=== PATIENT | male | born 1955 | race Caucasian/White ===

== ENCOUNTER 2016-12-28 03:02 | Emergency (ER) | payer OTHER ==
[~2016-12-28] VITALS: Ht 175.3 cm; Wt 112.7 kg
[~2016-12-28 03:02] MED LIST: ASPI-621 PO; ASPI-770 PO; ATOR40TA78 PO; CLOP75TA22 PO; FLUT1DIS5 IH; LISI-167 PO; LISI5TAB7 PO; MECL-85 PO; SIMV10TA PO; TIOT18CA INH
[2016-12-28 03:59] LABS: BLOOD UREA NITROGEN 13 mg/dL (7-18)
[2016-12-28 04:04] LABS: IS PT STATUS REG ER OR PRE ER? YES
[2016-12-28 05:09] VITALS: BP 149/88
== END 2016-12-28 05:11 | disposition home or self-care (01) ==
LOC: ED 03:52
DX: J44.9 Chronic obstructive pulmonary disease, unspecified (principal); R09.02 Hypoxemia; E78.5 Hyperlipidemia, unspecified; I10 Essential (primary) hypertension; Z87.891 Personal history of nicotine dependence; Z86.73 Personal history of transient ischemic attack (TIA), and cerebral infarction without residual deficits
CPT/HCPCS: 36415; 71010; 80048; 82040; 83880; 84484; 85025; 93005; 99285

== ENCOUNTER → 2017-04-21 | Outpatient (CLI) | payer MEDICAID | END | disposition home or self-care (01) | LOC: CFH 08:27 | PROVIDERS: ATTEND Nurse Practitioner | DX: R91.1 Solitary pulmonary nodule (principal); J96.11 Chronic respiratory failure with hypoxia; K74.60 Unspecified cirrhosis of liver | CPT/HCPCS: 71250 ==

== ENCOUNTER → 2017-11-29 | Outpatient (CLI) | payer MEDICARE, MEDICAID ==
[~2017-11-29] MED LIST changes: -CLOP75TA22 PO; +CLOP75TA52 PO; +OMNIPAQUE 350 MG/ML, 100ML BOTTLE ONE
== END | disposition home or self-care (01) ==
LOC: CFH 12:58
PROVIDERS: ATTEND Psychiatry & Neurology Neurology
DX: D37.6 Neoplasm of uncertain behavior of liver, gallbladder and bile ducts (principal); J34.89 Other specified disorders of nose and nasal sinuses
CPT/HCPCS: 70470; 82565; Q9967

== ENCOUNTER 2018-06-10 09:16 | Emergency (ER) | payer MEDICARE, MEDICAID ==
[~2018-06-10] VITALS: Ht 175.3 cm; Wt 115.6 kg
[~2018-06-10 09:16] MED LIST changes: -ASPI-770 PO; +ASPI81TA59 PO; -OMNIPAQUE 350 MG/ML, 100ML BOTTLE ONE
[2018-06-10 09:21] VITALS: BP 141/79
[2018-06-10] MEDS ORDERED: MECLIZINE CHEWABLE 25 MG TAB ONE (10:54)
[2018-06-10] MEDS ORDERED: MECLIZINE CHEWABLE 25 MG TAB PO ONE (11:00)
== END 2018-06-10 11:07 | disposition home or self-care (01) ==
LOC: ED 10:48
DX: H81.399 Other peripheral vertigo, unspecified ear (principal); H81.10 Benign paroxysmal vertigo, unspecified ear; I10 Essential (primary) hypertension; J44.9 Chronic obstructive pulmonary disease, unspecified; E78.5 Hyperlipidemia, unspecified; Z87.891 Personal history of nicotine dependence
CPT/HCPCS: 70551; 93005; 99284

== ENCOUNTER 2018-07-26 14:47 | Emergency (ER) | payer MEDICARE, MEDICAID ==
[~2018-07-26] VITALS: Ht 177.8 cm; Wt 117.7 kg
[~2018-07-26 14:47] MED LIST changes: -ASPI-621 PO; +ASPI81TA45 PO
[2018-07-26 16:19] LABS: BASOPHILS # (AUTO) 0.02 x10^3/uL (0-0.1); BASOPHILS % (AUTO) 1 % (0-1); EOSINOPHILS # (AUTO) 0.09 x10^3/uL (0-0.4); EOSINOPHILS % (AUTO) 2 % (1-7); LYMPHOCYTES # (AUTO) 0.83 x10^3/uL (1-3.4); LYMPHOCYTES % (AUTO) 17 % (22-44); MD NO; MEAN CORPUSCULAR HEMOGLOBIN 31.3 pg (27.5-34.5); MEAN CORPUSCULAR HGB CONC 33.8 g/dL (33.2-36.2); MEAN CORPUSCULAR VOLUME 92.6 fL (81-97); MEAN PLATELET VOLUME 9.4 fL (7.4-10.4); MONOCYTES # (AUTO) 0.44 x10^3/uL (0.2-0.8); MONOCYTES % (AUTO) 9 % (2-9); NEUTROPHILS # (AUTO) 3.55 x10^3/uL (1.8-6.8); NEUTROPHILS % (AUTO) 72 % (42-75); PLATELET COUNT 104 x10^3/uL (130-400); RED BLOOD COUNT 5.01 x10^6/uL (4.38-5.82); RED CELL DISTRIBUTION WIDTH 14.1 % (9.4-14.8)
[2018-07-26 16:25] LABS: ALANINE AMINOTRANSFERASE 28 U/L (12-78); ALBUMIN 3.5 g/dL (3.4-5.0); ANION GAP 8 mmol/L (5-15); CALCIUM 9.3 mg/dL (8.5-10.1); CHLORIDE 104 mmol/L (98-107); CREATININE 0.84 mg/dL (0.7-1.3)
[2018-07-26 16:27] LABS: ALKALINE PHOSPHATASE 77 U/L (45-117); BILIRUBIN,TOTAL 0.7 mg/dL (0.2-1.0); TOTAL PROTEIN 7.9 g/dL (6.4-8.2)
[2018-07-26 18:25] LABS: MICROSCOPIC NOT IND
[2018-07-26 18:43] LABS: CULTURE INDICATED? NO
[2018-07-26] MEDS ORDERED: KETOROLAC 30 MG/1 ML ONE (18:49)
[2018-07-26] MEDS ORDERED: MORPHINE SULFATE 4 MG/ML, 1ML ONE (18:49)
[2018-07-26] MEDS ORDERED: DIAZEPAM 5 MG TABLET ONE (18:50)
[2018-07-26] MEDS ORDERED: DIAZEPAM 5 MG TABLET PO ONE (19:00)
[2018-07-26] MEDS ORDERED: MORPHINE SULFATE 4 MG/ML, 1ML IVPush PRN (19:00)
[2018-07-26] MEDS ORDERED: KETOROLAC 30 MG/1 ML IVPush ONE (19:00)
[2018-07-26] MEDS ORDERED: HYDR12.53 PO (19:16)
[2018-07-26] MEDS ORDERED: UMEC1DIS INH (19:17)
[2018-07-26] MEDS ORDERED: OMNIPAQUE 350 MG/ML, 100ML BOTTLE ONE (19:23)
[2018-07-26 19:55] VITALS: BP 141/81
== END 2018-07-26 21:39 | disposition home or self-care (01) ==
LOC: ED 21:33
DX: S39.012A Strain of muscle, fascia and tendon of lower back, initial encounter (principal); J44.9 Chronic obstructive pulmonary disease, unspecified; R10.32 Left lower quadrant pain; R19.7 Diarrhea, unspecified; I10 Essential (primary) hypertension; E78.5 Hyperlipidemia, unspecified; Z86.19 Personal history of other infectious and parasitic diseases; Z90.89 Acquired absence of other organs; Z86.73 Personal history of transient ischemic attack (TIA), and cerebral infarction without residual deficits; X50.1XXA Overexertion from prolonged static or awkward postures, initial encounter; Y93.89 Activity, other specified; Y92.89 Other specified places as the place of occurrence of the external cause; Y99.8 Other external cause status
CPT/HCPCS: 36415; 74022; 74177; 80053; 81003; 85025; 96374; 96375; 99284; J1885; Q9967

== ENCOUNTER 2018-08-11 09:57 | Day surgery (SDC) | payer MEDICARE, MEDICAID ==
[~2018-08-11] VITALS: Ht 176.5 cm; Wt 117.3 kg
[~2018-08-11 09:57] MED LIST changes: +ASPI-496 PO; +HYDR12.517 PO; +LISI1TAB5 PO; +UMEC1DIS INH
[2018-08-11] MEDS ORDERED: LACTATED RINGERS 1,000 ML IV SCH (10:23)
[2018-08-11 11:04] VITALS: BP 131/89
[2018-08-11] MEDS ORDERED: FENTANYL PF 250 MCG/5ML ONE (11:54)
[2018-08-11] MEDS ORDERED: MIDAZOLAM 1 MG/ML, 2ML ONE (11:54)
[2018-08-11] MEDS ORDERED: PROPOFOL 10 MG/ML, 20ML ONE (12:05)
[2018-08-11] MEDS ORDERED: CEFTRIAXONE 1,000 MG ONE (12:20)
[2018-08-11] MEDS ORDERED: ONDANSETRON 2MG/ML, 2ML ONE ×3 (12:23→12:27)
[2018-08-11] MEDS ORDERED: DEXAMETHASONE 4 MG/ML, 1ML ONE ×3 (12:23→12:27)
[2018-08-11] MEDS ORDERED: SUCCINYLCHOLINE 20 MG/ML, 10ML ONE (12:27)
[2018-08-11] MEDS ORDERED: ROCURONIUM 10MG/ML,5ML ONE (12:27)
[2018-08-11] MEDS ORDERED: PHENYLEPHRINE 10 MG/ML ONE (12:27)
[2018-08-11] MEDS ORDERED: OXYcodone 5 MG/5 ML ORAL.SOL UDC PO PRN (13:00)
[2018-08-11] MEDS ORDERED: LORazepam 2 MG/ML, 1ML IVPush PRN (13:00)
[2018-08-11] MEDS ORDERED: LABETALOL 5MG/ML, 20ML IV PRN (13:00)
[2018-08-11] MEDS ORDERED: FENTANYL PF 100 MCG/2ML IV PRN (13:00)
[2018-08-11] MEDS ORDERED: MEPERIDINE/PF 25MG/0.5ML IVPush PRN (13:00)
[2018-08-11] MEDS ORDERED: hydrALAzine 20 MG/ML, 1ML IV PRN (13:00)
[2018-08-11] MEDS ORDERED: ALBUTEROL/IPRATROPIUM 2.5MG/0.5MG, 3 ML NPPB PRN (13:00)
[2018-08-11] MEDS ORDERED: HALOPERIDOL 5 MG/ML IV PRN (13:00)
[2018-08-11] MEDS ORDERED: HYDROmorphone 2 MG/ML, 1ML IVPush PRN (13:00)
[2018-08-11] MEDS ORDERED: ONDANSETRON 2MG/ML, 2ML IV PRN (13:00)
== END 2018-08-11 14:20 | disposition home or self-care (01) ==
LOC: OUT 09:57
PROVIDERS: ATTEND Internal Medicine
DX: Z12.11 Encounter for screening for malignant neoplasm of colon (principal); D12.4 Benign neoplasm of descending colon; K57.30 Diverticulosis of large intestine without perforation or abscess without bleeding; I85.00 Esophageal varices without bleeding; K29.70 Gastritis, unspecified, without bleeding; J44.9 Chronic obstructive pulmonary disease, unspecified; E66.9 Obesity, unspecified; G47.33 Obstructive sleep apnea (adult) (pediatric); I10 Essential (primary) hypertension; Z86.73 Personal history of transient ischemic attack (TIA), and cerebral infarction without residual deficits; Z86.19 Personal history of other infectious and parasitic diseases; Z98.890 Other specified postprocedural states; Z87.891 Personal history of nicotine dependence
CPT/HCPCS: 43239; 43244; 45385; 88305; 93005; J0330; J0696; J1100; J2250; J2370; J2405; J2704; J3010; J7120

== ENCOUNTER → 2018-10-18 | Outpatient (CLI) | payer MEDICARE, MEDICAID | END | disposition home or self-care (01) | LOC: CFH 13:57 | PROVIDERS: ATTEND Nurse Practitioner Family | DX: R91.1 Solitary pulmonary nodule (principal) | CPT/HCPCS: 71250 ==

== ENCOUNTER → 2018-11-10 | Outpatient (CLI) | payer MEDICARE, MEDICAID ==
[~2018-11-10] MED LIST changes: +ATOR20TA37 PO
== END | disposition home or self-care (01) ==
LOC: STAR 10:49
PROVIDERS: ATTEND Internal Medicine
DX: Z01.818 Encounter for other preprocedural examination (principal); K74.60 Unspecified cirrhosis of liver
CPT/HCPCS: 93005

== ENCOUNTER 2018-11-17 09:57 | Day surgery (SDC) | payer MEDICARE, MEDICAID ==
[~2018-11-17] VITALS: Ht 177.8 cm; Wt 117.2 kg
[2018-11-17 10:14] VITALS: BP 145/83
[2018-11-17] MEDS ORDERED: LACTATED RINGERS 1,000 ML IV SCH (10:45)
[2018-11-17] MEDS ORDERED: PROPOFOL 10 MG/ML, 20ML ONE (12:07)
== END 2018-11-17 13:45 | disposition home or self-care (01) ==
LOC: OUT 09:57
PROVIDERS: ATTEND Internal Medicine
DX: I85.00 Esophageal varices without bleeding (principal); K74.60 Unspecified cirrhosis of liver; G47.33 Obstructive sleep apnea (adult) (pediatric); J44.9 Chronic obstructive pulmonary disease, unspecified; Z87.891 Personal history of nicotine dependence; Z79.82 Long term (current) use of aspirin
CPT/HCPCS: 43244; J2704; J7120

== ENCOUNTER → 2019-03-13 | Outpatient (CLI) | payer MEDICARE, MEDICAID | END | disposition home or self-care (01) | LOC: CFH 09:26 | PROVIDERS: ATTEND Nurse Practitioner Family | DX: M47.817 Spondylosis without myelopathy or radiculopathy, lumbosacral region (principal); M41.86 Other forms of scoliosis, lumbar region | CPT/HCPCS: 72114 ==

== ENCOUNTER → 2019-10-03 | Outpatient (CLI) | payer MEDICARE, MEDICAID ==
[~2019-10-03] MED LIST changes: +LISI1TAB19 PO; -LISI1TAB5 PO
== END | disposition home or self-care (01) ==
LOC: CFH 16:26
PROVIDERS: ATTEND Nurse Practitioner Family
DX: M19.012 Primary osteoarthritis, left shoulder (principal); M75.32 Calcific tendinitis of left shoulder; M25.712 Osteophyte, left shoulder

== ENCOUNTER → 2020-04-09 | Outpatient (CLI) | payer MEDICARE, MEDICAID ==
[~2020-04-09] MED LIST changes: +FURO20TA3 PO; +GABA600T7 PO; +LORazepam 2 MG/ML, 1ML ONE; +ROSU5TAB PO
[2020-04-09 10:59] LABS: ALANINE AMINOTRANSFERASE 32 U/L (12-78); ALBUMIN 4.1 g/dL (3.4-5.0); ANION GAP 4 mmol/L (5-15); CHLORIDE 107 mmol/L (98-107); CREATININE 0.93 mg/dL (0.7-1.3)
[2020-04-09 11:01] LABS: ALKALINE PHOSPHATASE 77 U/L (45-117); BILIRUBIN,TOTAL 0.7 mg/dL (0.2-1.0); TOTAL PROTEIN 8.2 g/dL (6.4-8.2)
== END | disposition home or self-care (01) ==
LOC: STAR 09:48
DX: Z01.818 Encounter for other preprocedural examination (principal); K74.60 Unspecified cirrhosis of liver; I85.00 Esophageal varices without bleeding
CPT/HCPCS: 36415; 80053; 93005

== ENCOUNTER 2020-04-12 13:13 | Outpatient (CLI) | payer MEDICARE, MEDICAID ==
[~2020-04-12 13:13] MED LIST changes: -LORazepam 2 MG/ML, 1ML ONE
== END 2020-04-12 23:59 | disposition home or self-care (01) ==
LOC: STAR 13:13
PROVIDERS: ATTEND Anesthesiology
DX: Z01.818 Encounter for other preprocedural examination (principal); Z11.59 Encounter for screening for other viral diseases
CPT/HCPCS: 36415; 87635

== ENCOUNTER 2020-04-16 07:59 | Day surgery (SDC) | payer MEDICARE, MEDICAID ==
[~2020-04-16] VITALS: Ht 176.5 cm; Wt 120.0 kg
[2020-04-16] MEDS ORDERED: CHLORHEXIDINE 15 ML UDC MM STA (08:41)
[2020-04-16 08:46] VITALS: BP 112/73
[2020-04-16] MEDS ORDERED: PROPOFOL 10 MG/ML, 20ML ONE (09:40)
[2020-04-16] MEDS ORDERED: LACTATED RINGERS 1,000 ML IV SCH (10:00)
== END 2020-04-16 11:15 | disposition home or self-care (01) ==
LOC: OUT 07:59
PROVIDERS: ATTEND Internal Medicine Geriatric Medicine
DX: I85.00 Esophageal varices without bleeding (principal); K70.30 Alcoholic cirrhosis of liver without ascites; B19.20 Unspecified viral hepatitis C without hepatic coma; I10 Essential (primary) hypertension; E78.5 Hyperlipidemia, unspecified; J44.9 Chronic obstructive pulmonary disease, unspecified; G47.33 Obstructive sleep apnea (adult) (pediatric); Z79.899 Other long term (current) drug therapy; Z72.89 Other problems related to lifestyle; Z87.891 Personal history of nicotine dependence; Z85.05 Personal history of malignant neoplasm of liver; Z98.890 Other specified postprocedural states
CPT/HCPCS: 43239; 88305; J2704

== ENCOUNTER 2021-03-10 15:09 | Emergency (ER) | payer MEDICARE, MEDICAID ==
[~2021-03-10] VITALS: Ht 175.3 cm; Wt 123.2 kg
[~2021-03-10 15:09] MED LIST changes: -LISI1TAB19 PO; +LISI1TAB39 PO
[2021-03-10 15:49] LABS: BASOPHILS % (AUTO) 0 % (0-1); EOSINOPHILS % (AUTO) 1 % (1-7); LYMPHOCYTES % (AUTO) 6 % (22-44); MEAN CORPUSCULAR HEMOGLOBIN 31.8 pg (27.5-34.5); MEAN CORPUSCULAR HGB CONC 34.1 g/dL (33.2-36.2); MEAN PLATELET VOLUME 9.2 fL (7.4-10.4); MONOCYTES % (AUTO) 12 % (2-9); NEUTROPHILS % (AUTO) 81 % (42-75); PLATELET COUNT 62 x10^3/uL (130-400); RED BLOOD COUNT 4.99 x10^6/uL (4.38-5.82); RED CELL DISTRIBUTION WIDTH 14.4 % (9.4-14.8)
[2021-03-10 15:56] LABS: ALBUMIN 3.3 g/dL (3.4-5.0); ANION GAP 3 mmol/L (5-15); CHLORIDE 107 mmol/L (98-107)
--- NOTE | 2021-03-10 17:54 | NUR ---
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
--- NOTE | 2021-03-10 17:57 | NUR ---
PT BROUGHT BACK FROM TRIAGE WITH CHIEF COMPLAINT OF N/V, LEFT ARM PAIN AND MILLIGAN STARTING LAST NIGHT.
--- NOTE | 2021-03-10 18:01 | NUR ---
PT DENIES CP, SOB, OR RECENT TRAUMA.
--- NOTE | 2021-03-10 19:08 | NUR ---
ASSUMING CARE OF PT AFTER REPORT FROM VIKAS CAAL. PT SITTING UP IN BED. VSS. FRIAS.
[2021-03-10 19:29] LABS: ALANINE AMINOTRANSFERASE 43 U/L (12-78); ALBUMIN 3.2 g/dL (3.4-5.0); ANION GAP 5 mmol/L (5-15); CALCIUM 8.7 mg/dL (8.5-10.1); CHLORIDE 105 mmol/L (98-107); CREATININE 0.81 mg/dL (0.7-1.3)
[2021-03-10 19:32] LABS: BASOPHILS % (AUTO) 1 % (0-1); EOSINOPHILS % (AUTO) 2 % (1-7); LYMPHOCYTES % (AUTO) 8 % (22-44); MEAN CORPUSCULAR HEMOGLOBIN 31.6 pg (27.5-34.5); MEAN CORPUSCULAR HGB CONC 34.2 g/dL (33.2-36.2); MONOCYTES % (AUTO) 13 % (2-9); NEUTROPHILS % (AUTO) 78 % (42-75); PLATELET COUNT 56 x10^3/uL (130-400); RED BLOOD COUNT 4.98 x10^6/uL (4.38-5.82); RED CELL DISTRIBUTION WIDTH 14.4 % (9.4-14.8)
[2021-03-10 19:34] LABS: ALKALINE PHOSPHATASE 71 U/L (45-117); BILIRUBIN,TOTAL 1.4 mg/dL (0.2-1.0); TOTAL PROTEIN 7.1 g/dL (6.4-8.2); TROPONIN I < 0.015 ng/mL (0.000-0.045)
--- NOTE | 2021-03-10 20:07 | NUR ---
UA SENT TO LAB. PATIENT TOLERATING INTERVENTIONS WELL. UPDATED ON PLAN OF CARE. NO NOTED ADDITIONAL NEEDS AT THIS TIME. CALL LIGHT WITHIN REACH, BED IN LOWEST LOCKED POSITION, SIDE RAILS X 2 UP. VSS. WILL CONTINUE TO MONITOR.
[2021-03-10 20:29] LABS: MICROSCOPIC INDICATED
[2021-03-10] MEDS ORDERED: ONDANSETRON ODT 4 MG ONE (20:40)
[2021-03-10] MEDS ORDERED: ONDANSETRON ODT 4 MG PO ONE (21:00)
[2021-03-10] MEDS ORDERED: ONDANSETRON 2MG/ML, 2ML IVPush ONE (21:00)
--- NOTE | 2021-03-10 21:10 | NUR ---
UPDATED ON PLAN OF CARE. NO NOTED ADDITIONAL NEEDS AT THIS TIME. CALL LIGHT WITHIN REACH, BED IN LOWEST LOCKED POSITION, SIDE RAILS X 2 UP. VSS. WILL CONTINUE TO MONITOR.
[2021-03-10 21:35] VITALS: BP 138/74
--- NOTE | 2021-03-10 21:39 | NUR ---
PT CLEARED FOR DISCHARGE. VERBALIZED UNDERSTANDING OF SELF CARE AND FOLLOW UP CARE AT HOME. AMBULATORY WITH TO DISCHARGE WITH BELONGINGS WITHOUT COMPLICATIONS. NO NOTED ACUTE DISTRESS. VSS.
== END 2021-03-10 21:42 | disposition home or self-care (01) ==
LOC: ED 15:39
DX: M79.622 Pain in left upper arm (principal); B34.9 Viral infection, unspecified; Z20.822 Contact with and (suspected) exposure to COVID-19; R00.0 Tachycardia, unspecified; I10 Essential (primary) hypertension; J44.9 Chronic obstructive pulmonary disease, unspecified; E78.5 Hyperlipidemia, unspecified; Z86.73 Personal history of transient ischemic attack (TIA), and cerebral infarction without residual deficits; Z87.891 Personal history of nicotine dependence; Z86.19 Personal history of other infectious and parasitic diseases
CPT/HCPCS: 36415; 71045; 80048; 80053; 81001; 82040; 84145; 84484; 85025; 87086; 93005; 99285; Q0162; U0003; U0005

== ENCOUNTER 2021-03-11 13:40 | Observation (INO) | payer MEDICARE, MEDICAID ==
[~2021-03-11] VITALS: Ht 175.3 cm; Wt 123.6 kg
--- NOTE | 2021-03-11 13:40 | NUR ---
JOYA FROM HOME C/O SUDDEN CP RAD TO BACK WHILE AT HOME DEPOT EARLIER, PT ALSO STATES "I WASN'T WEARING MY OXYGEN AT THE TIME", PT SEEN LAST NIGHT FOR SAME & DC'D TO F/U WITH CARDS, PT DENIES PAIN ON ARRIVAL; ASA 324MG & PIV GLASS SCULLION PER EMS; PT CHANGED INTO GOWN, RESPONDS APPROP TO STAFF, NAD/RESP DISTRESS, MONITORS IN PLACE, COMFORT MEASURES PROVIDED, CALL LIGHT WITHIN REACH.
[2021-03-11] MEDS ORDERED: SODIUM CHLORIDE FLUSH 10ML SYR IVF ONE (15:00)
[2021-03-11] MEDS ORDERED: ASPIRIN 81 MG TABLET CHEW PO ONE (15:00)
[2021-03-11] MEDS ORDERED: NITROGLYCERIN SINGLE TAB 0.4 MG SL PRN (15:00)
--- NOTE | 2021-03-11 15:00 | NUR ---
PT UPRIGHT ON GURNEY AWAKE & COMFORTABLE, NAD- DENIES CHEST PAIN & SOB, NTG HELD AT THIS TIME PER ERP REQUEST, RESPONDS APPROP TO STAFF, NO NEEDS AT THIS TIME, CALL LIGHT WITHIN REACH.
[2021-03-11 15:28] LABS: CALCIUM 8.4 mg/dL (8.5-10.1); CREATININE 0.76 mg/dL (0.7-1.3)
[2021-03-11 15:30] LABS: BASOPHILS % (AUTO) 1 % (0-1); EOSINOPHILS % (AUTO) 3 % (1-7); LYMPHOCYTES % (AUTO) 9 % (22-44); MEAN CORPUSCULAR HEMOGLOBIN 31.6 pg (27.5-34.5); MEAN CORPUSCULAR HGB CONC 34.1 g/dL (33.2-36.2); MEAN PLATELET VOLUME 9.1 fL (7.4-10.4); MONOCYTES % (AUTO) 14 % (2-9); NEUTROPHILS % (AUTO) 74 % (42-75); PLATELET COUNT 62 x10^3/uL (130-400); RED BLOOD COUNT 4.82 x10^6/uL (4.38-5.82); RED CELL DISTRIBUTION WIDTH 14.7 % (9.4-14.8)
[2021-03-11 15:32] LABS: TROPONIN I < 0.015 ng/mL (0.000-0.045)
[2021-03-11 15:43] LABS: ANION GAP 2 mmol/L (5-15); CHLORIDE 106 mmol/L (98-107)
--- NOTE | 2021-03-11 16:02 | NUR ---
PT REMAINS UPRIGHT ON GURNEY AWAKE & COMFORTABLE, NAD- DENIES CHEST PAIN & SOB, RESPONDS APPROP TO STAFF, COMFORT MEASURES PROVIDED, CALL LIGHT WITHIN REACH.
[2021-03-11] MEDS ORDERED: ENOXAPARIN 40 MG/0.4 ML SQ SCH (17:00)
[2021-03-11] MEDS ORDERED: ALBUTEROL SULFATE 2.5 MG/3 ML NPPB PRN (17:00)
[2021-03-11] MEDS ORDERED: ONDANSETRON 2MG/ML, 2ML IVPush PRN (17:00)
[2021-03-11] MEDS ORDERED: POLYETHYLENE GLYCOL 17 GM PACKET PO PRN (17:00)
[2021-03-11] MEDS ORDERED: ACETAMINOPHEN 325 MG TABLET PO PRN (17:00)
[2021-03-11] MEDS ORDERED: ONDANSETRON ODT 4 MG PO PRN (17:00)
--- NOTE | 2021-03-11 17:00 | NUR ---
PT UPRIGHT ON GURNEY AWAKE & COMFORTABLE, WATCHING TV, NAD/DENIES CHEST PAIN & SOB, RESPONDS APPROP TO STAFF, NO NEEDS AT THIS TIME, CALL LIGHT WITHIN REACH.
--- NOTE | 2021-03-11 17:11 | NUR ---
PT TO CTA
--- NOTE | 2021-03-11 17:32 | NUR ---
PT RETURNED FROM CTA
[2021-03-11] MEDS ORDERED: OMNIPAQUE 350 MG/ML, 75ML BOTTLE ONE (17:37)
--- NOTE | 2021-03-11 17:38 | NUR ---
Pt to be admitted to [facility], room 527. Report called to SHANNON CRUZ.
[2021-03-11] MEDS: ALBUTEROL/IPRATROPIUM 2.5MG/0.5MG, 3 ML NPPB SCH (19:12)
[2021-03-11 19:17] LABS: TROPONIN I < 0.015 ng/mL (0.000-0.045)
[2021-03-11 20:17] VITALS: BP 110/67
[2021-03-11] MEDS ORDERED: ATORVASTATIN 20 MG TABLET PO SCH ×2 (21:00)
[2021-03-11 23:01] LABS: AMPHETAMINE SCREEN, URINE Negative (Negative); BARBITURATE SCREEN, URINE Negative (Negative); BENZODIAZEPINE SCREEN, URINE Negative (Negative); CANNABINOID SCREEN, URINE Negative (Negative); COCAINE SCREEN, URINE Negative (Negative); METHADONE SCREEN, URINE Negative (Negative); OPIATE SCREEN, URINE Negative (Negative)
[2021-03-12 01:37] LABS: TROPONIN I < 0.015 ng/mL (0.000-0.045)
[2021-03-12 02:03] VITALS: BP 116/70
[2021-03-12 05:05] LABS: BASOPHILS % (AUTO) 1 % (0-1); EOSINOPHILS % (AUTO) 3 % (1-7); LYMPHOCYTES % (AUTO) 13 % (22-44); MEAN CORPUSCULAR HEMOGLOBIN 31.8 pg (27.5-34.5); MEAN CORPUSCULAR HGB CONC 34.5 g/dL (33.2-36.2); MEAN PLATELET VOLUME 8.8 fL (7.4-10.4); MONOCYTES % (AUTO) 16 % (2-9); NEUTROPHILS % (AUTO) 67 % (42-75); PLATELET COUNT 60 x10^3/uL (130-400); RED BLOOD COUNT 4.61 x10^6/uL (4.38-5.82); RED CELL DISTRIBUTION WIDTH 14.4 % (9.4-14.8)
[2021-03-12 05:17] LABS: ALANINE AMINOTRANSFERASE 37 U/L (12-78); ALBUMIN 2.9 g/dL (3.4-5.0); ALKALINE PHOSPHATASE 67 U/L (45-117); BILIRUBIN,TOTAL 0.9 mg/dL (0.2-1.0); CALCIUM 8.5 mg/dL (8.5-10.1); CHOL/HDL RATIO 2.1; CHOLESTEROL, TOTAL 103 mg/dL (140-239); CREATININE 0.78 mg/dL (0.7-1.3); HDL CHOL % 48 % (26-37); HDL CHOLESTEROL (DIRECT) 49 mg/dL (40-60); LDL CHOLESTEROL,CALCULATED 44 mg/dL (54-169); LDL/HDL RATIO 0.9 (0.5-3.0); TOTAL PROTEIN 6.4 g/dL (6.4-8.2); TRIGLYCERIDES 51 mg/dL (50-200); VLDL CHOLESTEROL 10 mg/dL (0-25)
[2021-03-12 05:26] LABS: ANION GAP 4 mmol/L (5-15); CHLORIDE 105 mmol/L (98-107)
[2021-03-12] MEDS ORDERED: ASPIRIN 81 MG TABLET EC PO SCH (06:00)
[2021-03-12] MEDS: ALBUTEROL/IPRATROPIUM 2.5MG/0.5MG, 3 ML NPPB SCH ×3 (06:40→13:21)
[2021-03-12 06:53] VITALS: BP 119/68
[2021-03-12] MEDS ORDERED: TEMPLATE NON-FORMULARY MED. (Umeclidinium Brm/Vilanterol Tr (Anoro Ellipta 62.5-25 Mcg Inh INH SCH (09:00)
[2021-03-12] MEDS ORDERED: OMEPRAZOLE 20 MG CAPSULE.DR PO SCH (09:00)
[2021-03-12] MEDS ORDERED: HYDROCHLOROTHIAZIDE 12.5 MG CAPSULE PO SCH (09:00)
[2021-03-12] MEDS ORDERED: LISINOPRIL 20 MG TABLET PO SCH (09:00)
[2021-03-12] MEDS ORDERED: SENNA/DOCUSATE TABLET PO SCH (09:00)
[2021-03-12] MEDS ORDERED: REGADENOSON 0.4 MG/5 ML SYRINGE ONE (10:49)
[2021-03-12 14:59] VITALS: BP 116/68
[2021-03-31] MEDS ORDERED: OMEP20TA62 PO (09:05)
[2021-03-31] MEDS ORDERED: DIPH-792 PO (09:05)
[2021-03-31] MEDS ORDERED: ALBU8.5H8 INH (09:18)
== END 2021-03-12 19:32 | disposition home or self-care (01) ==
LOC: ED 16:02 → INTOOBSV 16:07 → EDIP 16:07 → 5SO 17:38 → EDIP 17:39 → 5SO 18:04
PROVIDERS: ADMIT Hospitalist; ATTEND Family Medicine
DX: R07.89 Other chest pain (principal); Z20.822 Contact with and (suspected) exposure to COVID-19; J96.11 Chronic respiratory failure with hypoxia; D72.819 Decreased white blood cell count, unspecified; I10 Essential (primary) hypertension; J44.9 Chronic obstructive pulmonary disease, unspecified; E78.5 Hyperlipidemia, unspecified; B18.2 Chronic viral hepatitis C; C22.9 Malignant neoplasm of liver, not specified as primary or secondary; F15.11 Other stimulant abuse, in remission; D69.6 Thrombocytopenia, unspecified; R50.9 Fever, unspecified; J98.11 Atelectasis; E66.9 Obesity, unspecified; Z86.73 Personal history of transient ischemic attack (TIA), and cerebral infarction without residual deficits; Z79.899 Other long term (current) drug therapy; Z86.718 Personal history of other venous thrombosis and embolism; Z87.891 Personal history of nicotine dependence; Z99.81 Dependence on supplemental oxygen
CPT/HCPCS: 36415; 71045; 71275; 78452; 80048; 80053; 80061; 80307; 82040; 83036; 84484; 85025; 93005; 93017; 93306; 93356; 94640; 96372; 99285; A9502; C9898; G0378; J1650; J2785; Q9967; 81001; 84145; 87086; U0005; U0003

== ENCOUNTER 2021-04-01 06:38 | Day surgery (SDC) | payer MEDICARE, MEDICAID ==
[2021-03-31 09:43] LABS: ALBUMIN 3.3 g/dL (3.4-5.0); ANION GAP 4 mmol/L (5-15); CHLORIDE 105 mmol/L (98-107)
[2021-03-31 09:46] LABS: ALANINE AMINOTRANSFERASE 38 U/L (12-78); ALKALINE PHOSPHATASE 102 U/L (45-117); BILIRUBIN,TOTAL 0.8 mg/dL (0.2-1.0); TOTAL PROTEIN 7.2 g/dL (6.4-8.2)
[~2021-04-01] VITALS: Ht 175.3 cm; Wt 121.6 kg
[~2021-04-01 06:38] MED LIST changes: +ALBU8.5H8 INH; +DIPH-792 PO; +OMEP20TA62 PO
[2021-04-01 07:10] VITALS: BP 132/83
[2021-04-01] MEDS ORDERED: LACTATED RINGERS 1,000 ML IV SCH (07:30)
[2021-04-01] MEDS ORDERED: CHLORHEXIDINE 15 ML UDC PO ONE (07:30)
[2021-04-01] MEDS ORDERED: MIDAZOLAM 1 MG/ML, 2ML IV PRN (08:30)
[2021-04-01] MEDS ORDERED: FENTANYL PF 100 MCG/2ML IV PRN (08:30)
[2021-04-01] MEDS ORDERED: LABETALOL 5MG/ML, 20ML IV PRN (08:30)
[2021-04-01] MEDS ORDERED: OXYcodone 5 MG/5 ML ORAL.SOL UDC PO PRN (08:30)
[2021-04-01] MEDS ORDERED: ONDANSETRON 2MG/ML, 2ML IVPush PRN (08:30)
[2021-04-01] MEDS ORDERED: ALBUTEROL SULFATE 2.5 MG/3 ML NPPB PRN (08:30)
[2021-04-01] MEDS ORDERED: PROPOFOL 10 MG/ML, 20ML ONE ×2 (08:47)
[2021-04-01] MEDS ORDERED: LIDOCAINE-MPF 2% ,5ML ONE (08:47)
== END 2021-04-01 09:40 | disposition home or self-care (01) ==
LOC: OUT 06:38
PROVIDERS: ATTEND Internal Medicine Geriatric Medicine
DX: K72.90 Hepatic failure, unspecified without coma (principal); B18.2 Chronic viral hepatitis C; I85.10 Secondary esophageal varices without bleeding; K21.9 Gastro-esophageal reflux disease without esophagitis; I10 Essential (primary) hypertension; E78.5 Hyperlipidemia, unspecified; J44.9 Chronic obstructive pulmonary disease, unspecified; G47.33 Obstructive sleep apnea (adult) (pediatric); E66.01 Morbid (severe) obesity due to excess calories; Z68.41 Body mass index [BMI] 40.0-44.9, adult; Z79.899 Other long term (current) drug therapy; Z85.05 Personal history of malignant neoplasm of liver; Z87.891 Personal history of nicotine dependence; Z90.49 Acquired absence of other specified parts of digestive tract; Z99.81 Dependence on supplemental oxygen
CPT/HCPCS: 36415; 43244; 80053; 93005; J2704; J7120

== ENCOUNTER 2021-04-17 11:38 | Outpatient (CLI) | payer MEDICARE, MEDICAID | END 2021-04-17 23:59 | disposition home or self-care (01) | LOC: STAR 11:38 | PROVIDERS: ATTEND Internal Medicine | DX: Z02.9 Encounter for administrative examinations, unspecified (principal) ==